=== PATIENT | female | born 1970 | race Two or more races ===

== ENCOUNTER 2021-10-26 00:10 | Emergency (ER) | payer OTHER ==
[~2021-10-26] VITALS: Ht 170.2 cm; Wt 89.0 kg
[2021-10-26] MEDS ORDERED: ALBUTEROL SULFATE 2.5 MG/0.5 ML NEB SOLUTION NEB ONE (00:30)
[2021-10-26] MEDS ORDERED: ALBUTEROL SULFATE 5 MG/ML 20 ML NEB SOLN [BULK] NEB ONE ×2 (00:30→03:30)
[2021-10-26] MEDS ORDERED: IPRATROPIUM BROMIDE 0.5 MG/2.5 ML NEB SOLUTION NEB ONE (00:30)
[2021-10-26] MEDS ORDERED: MethylPREDNISolone SOD SUCC 125 MG/2 ML VIAL IVP ONE (00:30)
[2021-10-26 00:44] LABS: BASOPHILS % (AUTO) 0.4 % (0.0-2.0); HEMATOCRIT 40.4 % (36-46); LYMPHOCYTES # (AUTO) 2.5 K/uL (1.0-4.8); LYMPHOCYTES % (AUTO) 39.5 % (22.0-44.0); MEAN CORPUSCULAR HEMOGLOBIN 30.1 pg (26.0-34.0); MEAN CORPUSCULAR HGB CONC 34.7 G/dL (31.0-37.0); MEAN CORPUSCULAR VOLUME 87 fL (80-100); MONOCYTES # (AUTO) 0.5 K/uL (0.1-1.0); MONOCYTES % (AUTO) 7.7 % (2.0-9.0); NEUTROPHILS # (AUTO) 2.1 K/uL (1.8-7.7); NEUTROPHILS % (AUTO) 33.8 % (40.0-70.0); PLATELET COUNT (AUTO) 244 K/uL (150-450); RED BLOOD CELL COUNT(AUTO) 4.65 MIL/uL (4.00-5.20); RED CELL DISTRIBUTION WIDTH 13.5 % (11.5-14.5)
[2021-10-26 00:46] LABS: EOSINOPHILS % (AUTO) 18.6 % (1.0-6.0)
[2021-10-26 00:47] LABS: CALCIUM, TOTAL 9.4 mg/dL (8.8-10.5); POTASSIUM 3.8 mmol/L (3.5-5.1)
[2021-10-26 00:57] LABS: ALBUMIN 3.9 g/dL (3.4-5.0); BILIRUBIN,TOTAL 0.4 mg/dL (0.1-1.0); TOTAL PROTEIN, SERUM 7.8 g/dL (6.4-8.2)
[2021-10-26 01:17] LABS: COVID AG,FIA SOURCE NASOPHARYNGEAL
[2021-10-26 01:38] LABS: INFLUENZA TYPE A NEGATIVE FOR TYPE A (NEGATIVE); INFLUENZA TYPE B NEGATIVE FOR TYPE B (NEGATIVE)
[2021-10-26] MEDS ORDERED: EPINEPHrine 1:1,000 [1 MG/ML] VIAL SQ ONE (03:30)
[2021-10-26] MEDS ORDERED: ALBU8HFA IH ×2 (04:54→05:33)
[2021-10-26] MEDS ORDERED: PRED-554 PO ×2 (04:54→05:33)
[2021-10-26] MEDS ORDERED: AUD NEB ×2 (04:54→05:33)
[2021-10-26 05:30] VITALS: BP 124/68
== END 2021-10-26 06:38 | disposition home or self-care (01) ==
LOC: EMS 00:12
DX: J45.901 Unspecified asthma with (acute) exacerbation (principal); Z79.899 Other long term (current) drug therapy; Z20.822 Contact with and (suspected) exposure to COVID-19
CPT/HCPCS: 99285; 96374; 71045; 87426; 80053; 83880; 84484; 85025; 87804; 36415; 94644; 94645; 93005; 96372; J0171; J2930; J7611; J7613